=== PATIENT | female | born 1950 | race Caucasian/White ===

== ENCOUNTER 2019-11-15 14:50 | Emergency (ER) | payer MEDICARE, OTHER, SELFPAY ==
--- NOTE | 2019-11-15 14:53 | CTR_ITS ---
PROCEDURE INFORMATION: Exam: CT Head Without Contrast Exam date and time: 11/15/2019 2:55 PM Age: 69 years old Clinical indication: Speech disturbance and weakness, facial; Slurred speech; Additional info: Left side weakness TECHNIQUE: Imaging protocol: Computed tomography of the head without contrast. Radiation optimization: All CT scans at this facility use at least one of these dose optimization techniques: automated exposure control; mA and/or kV adjustment per patient size (includes targeted exams where dose is matched to clinical indication); or iterative reconstruction. COMPARISON: No relevant prior studies available. RADIATION DOSE METRICS: Total DLP (mGy-cm): 817.75 FINDINGS: Brain: Mild volume loss and white matter disease are identified. There is no acute infarct or edema. No hemorrhage. Ventricles: Normal. No ventriculomegaly. Bones/joints: Unremarkable. No acute fracture. Sinuses: Visualized sinuses are unremarkable. No fluid levels. Mastoid air cells: Visualized mastoid air cells are well aerated. Soft tissues: Unremarkable. CT/CT head wo con* [id number] IMPRESSION: There are no acute concerning abnormalities. Radiation Dose CTDIVOL = (mGy): DLP = 817.75 (mGy-cm)
[2019-11-15 15:02] VITALS: BMI 24.0
[2019-11-15 15:07] VITALS: BP 169/81; PULSE 77; RESP 18; TEMP 36.5; O2SAT 100
[2019-11-15 15:17] LABS: Glucose Point of Care 105 mg/dL (70-110)
--- NOTE | 2019-11-15 15:21 | ECG_ITS ---
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 Measurements Intervals [place] Rate: 73 P: -1 IA: 163 QRS: 44 QRSD: 94 T: 4 QT: 458 QTc: 507 Interpretive Statements SINUS RHYTHM PROLONGED QT INTERVAL No previous ECG available for comparison Electronically Signed On 11-16-2019 18:10:37 CDT by Luisa Emanuel M.D. [email or web address] medical [email or web address] [facility].[employer]/store/[id number] f
[2019-11-15 15:55] LABS: Basophils # 0.1 10^3/uL (0.0-0.1); Basophils % 0.9 %; Eosinophils # 0.1 10^3/uL (0.0-0.8); Eosinophils % 1.2 %; Hematocrit 34.8 % (37.0-47.0); Hemoglobin 10.9 g/dL (11.5-15.3); Lymphocytes # 1.7 10^3/uL (0.8-4.8); Lymphocytes % 25.7 %; Mean Corpuscular HGB Conc 31.3 g/dL (30.0-36.0); Mean Corpuscular Hemoglobin 29.9 pg (28.0-34.0); Mean Corpuscular Volume 95.6 fL (81-99); Mean Platelet Volume 10.1 fL (7.4-10.4); Monocytes # 0.4 10^3/uL (0.2-0.9); Monocytes % 5.9 %; Neutrophils # 4.29 10^3/uL (1.8-7.7); Neutrophils % 66.1 %; Nucleated Red Blood Cells % 0 %; Platelet Count 289 10^3/cmm (130-400); Red Blood Count 3.64 10^6/uL (4.1-5.3); Red Cell Distribution Width 13.1 % (12.1-15.1); White Blood Count 6.5 10^3/uL (4.0-10.0)
[2019-11-15 16:17] LABS: Troponin(5th) Baseline 6 ng/L (0-10)
[2019-11-15 16:21] LABS: D Dimer 0.28 ug/mIFEU (0-0.59)
[2019-11-15 16:42] LABS: Alanine Aminotransferase 20 U/L (0-33); Albumin Level 3.9 g/dL (3.5-5.2); Alkaline Phosphatase 56 IU/L (35-105); Anion Gap 15.6 (5-19); Aspartate Amino Transferase 27 U/L (0-32); Blood Urea Nitrogen 22 mg/dL (8-23); Calcium 8.4 mg/dL (8.5-10.5); Carbon Dioxide 22 mmol/L (22-29); Chloride 107 mmol/L (98-107); Creatine Phosphokinase 65 U/L (26-192); Globulin 2.6 g/dL (1.3-4.6); Glomerular Filtration Rate 71.5 mL/min (90-130); Glucose 120 mg/dL (65-115); Lipase 30 U/L (13-60); NT Pro B Type Natriuretic Pept 66 pg/mL (0-125); Osmolality Calculated 290 mOsm/kg (285-295); Potassium 3.6 mmol/L (3.5-5.1); Sodium 141 mmol/L (136-145); Total Bilirubin 0.5 mg/dL (0.15-1.2); Total Protein 6.5 g/dL (6.6-8.7)
--- NOTE | 2019-11-15 17:21 | ECG_ITS ---
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 Measurements Intervals [place] Rate: 65 P: 11 NE: 151 QRS: -3 QRSD: 89 T: 55 QT: 455 QTc: 475 Interpretive Statements SINUS RHYTHM Compared to ECG 11/15/2019 15:12:29 Prolonged QT interval no longer present Electronically Signed On 11-16-2019 18:14:28 CDT by Luisa Emanuel M.D. [email or web address] centerKallikmartin memorial hospitalGT [facility]rological/store/[id number]
--- NOTE | 2019-11-15 17:37 | CTR_ITS ---
PROCEDURE INFORMATION: Exam: CT Angiography Head With Contrast Exam date and time: 11/15/2019 6:12 PM Age: 69 years old Clinical indication: Patient HX: AMS and L sided weakness; Additional info: Neuro symptoms. TECHNIQUE: Imaging protocol: Computed tomography angiography of the head with intravenous contrast. 3D rendering: MIP and/or 3D reconstructed images were created by the technologist. Radiation optimization: All CT scans at this facility use at least one of these dose optimization techniques: automated exposure control; mA and/or kV adjustment per patient size (includes targeted exams where dose is matched to clinical indication); or iterative reconstruction. Contrast material: OMNI 350; Contrast volume: 95 ml; Contrast route: INTRAVENOUS (IV); COMPARISON: CT head wo con* [id number] 2019-11-15 14:50 RADIATION DOSE METRICS: Total DLP (mGy-cm): 1434.16 FINDINGS: ANTERIOR CIRCULATION: Right internal carotid artery: Unremarkable. Intracranial segment is patent with no significant stenosis. No aneurysm. Right middle cerebral artery: Unremarkable. No occlusion or significant stenosis. No aneurysm. Right anterior cerebral artery: Unremarkable. No occlusion or significant stenosis. No aneurysm. Left internal carotid artery: Unremarkable. Intracranial segment is patent with no significant stenosis. No aneurysm. Left middle cerebral artery: Unremarkable. No occlusion or significant stenosis. No aneurysm. Left anterior cerebral artery: Unremarkable. No occlusion or significant stenosis. No aneurysm. POSTERIOR CIRCULATION: Right vertebral artery: Unremarkable. No occlusion or significant stenosis. No aneurysm. Left vertebral artery: Unremarkable. No occlusion or significant stenosis. No aneurysm. Basilar artery: Unremarkable. No occlusion or significant stenosis. No aneurysm. Right posterior cerebral artery: Unremarkable. No occlusion or significant stenosis. No aneurysm. Left posterior cerebral artery: Unremarkable. No occlusion or significant stenosis. No aneurysm. Veins: The visualized deep and superficial dural venous sinuses and cortical veins are patent. IMPRESSION: No large vessel stenosis or occlusion. PROCEDURE INFORMATION: Exam: CT Angiography Neck With Contrast Exam date and time: 11/15/2019 6:12 PM Age: 69 years old Clinical indication: Patient HX: AMS and L sided weakness; Additional info: Neuro symptoms. TECHNIQUE: Imaging protocol: Computed tomography angiography of the neck with intravenous contrast. 3D rendering: MIP and/or 3D reconstructed images were created by the technologist. Radiation optimization: All CT scans at this facility use at least one of these dose optimization techniques: automated exposure control; mA and/or kV adjustment per patient size (includes targeted exams where dose is matched to clinical indication); or iterative reconstruction. Contrast material: OMNI 350; Contrast volume: 95 ml; Contrast route: INTRAVENOUS (IV); COMPARISON: CT head wo con* [id number] 2019-11-15 14:50 RADIATION DOSE METRICS: Total DLP (mGy-cm): 1434.16 FINDINGS: Right common carotid artery: No stenosis. No dissection or occlusion. Right internal carotid artery: Mild atherosclerotic plaque in the carotid bulb and proximal right internal carotid artery with less than 50% stenosis by NASCET criteria. Right external carotid artery: Mild atherosclerotic plaque at the right external carotid artery origin. Right vertebral artery: No stenosis. No dissection or occlusion. Left common carotid artery: Mild atherosclerotic plaque in the predominately distal left common carotid artery and the bifurcation. Left internal carotid artery: Mild atherosclerotic plaque in the proximal left internal carotid artery and carotid bulb with less than 50% stenosis by NASCET criteria. Left external carotid artery: No occlusion or stenosis of the origin. Left vertebral artery: No stenosis. No dissection or occlusion. Bones/joints: No acute fracture. Soft tissues: Normal. No significant soft tissue swelling. CT/CT angio headneck* [id number] IMPRESSION: Minimal atherosclerotic plaque in the proximal internal carotid arteries and bifurcations without measurable stenosis. REFERENCES: NASCET CRITERIA. The degree of internal carotid artery stenosis is based on NASCET criteria. Normal is no stenosis. Mild is less than 50% stenosis. Moderate is 50-69% stenosis. Severe is 70% to 99% stenosis. Total occlusion is no detectable patent lumen. Radiation Dose CTDIVOL = (mGy): DLP = 1434.16~1434.16 (mGy-cm)
[2019-11-15 18:01] LABS: Add Urine Microscopic? NO
[2019-11-15 18:03] LABS: Bilirubin Urine Neg (NEGATIVE); Blood Urine Neg (Negative); Glucose Urine UA Norm (Normal); Ketones Urine Negative (Negative); Leukocyte Esterase Urine Negative (Negative); Nitrate Urine Negative (Negative); Protein Urine Neg (Negative); Specific Gravity, Urine 1.015 (1.005-1.030); Sulfosalicylic Acid Urine Negative (Negative); Urine Appearance Clear (CLEAR); Urine Color Yellow (Yellow); Urobilinogen Urine Norm (Negative); pH Urine 8 (5-7)
[2019-11-15 18:21] LABS: Troponin 5 2HR Delta 0 ABS# (0-10)
[2019-11-15 19:27] VITALS: PULSE 78; RESP 16; O2SAT 100
[2019-11-15] MEDS: iohexol 350 mg/mL 100 mL Btl IV (20:19)
[2019-11-15 20:21] VITALS: BP 151/83; PULSE 82; RESP 16; O2SAT 97
--- NOTE | 2019-11-15 20:55 | PC.NURSE ---
Patient ambulated to the bathroom with assist x 1. . Returned to room after using the bathroom and placed on monitor. Slightly unsteady of her feet but tolerated activity well.
[2019-11-15 21:00] VITALS: BP 175/81; PULSE 74; RESP 16; O2SAT 98
--- NOTE | 2019-11-15 21:01 | W.ED.NEUROSD ---
HPI - Neuro Symptoms/Deficit General: Chief Complaint: Neuro Symptoms/Deficit Stated Complaint: WEAKNESS Time Seen by Provider: 11/15/19 15:04 Source: patient and EMS Mode of arrival: EMS Limitations: no limitations History of Present Illness: HPI Narrative: Patient is a 69-year-old female with a history of hypertension who presents to the emergency department with generalized weakness, nausea and vomiting that started while she was on a drive from [place] going to [place]. She describes a sensation of the room spinning and is worse when she turns her head. She has no focal weakness but has generalized weakness. She denies any chest pain, shortness of breath, abdominal pain. When the ambulance arrived they said she was diaphoretic and they thought she may have had a facial droop. She was also pale at the time. Onset (ago): hour(s) (1.5) Associated symptoms: Reports nausea, vertigo and vomiting; Deny headache(s) Review of Systems General: Reports: 10 or more systems reviewed and unremarkable except in HPI and below Const: Denies: fever(s), chills or body aches Eyes: Denies: change in vision or blurry vision ENMT: Denies: throat pain, enlarged tonsils, odynophagia, hoarseness, mouth pain or swelling of lips/tongue Card: Denies: palpitations, irregular heart rhythm, edema or swelling of feet/ankles Resp: Denies: dyspnea, productive cough or non-productive cough GI: Reports: nausea and vomiting; Denies: abdominal pain, dysphagia or diarrhea : Denies: flank pain, difficulty voiding, dysuria, urinary frequency, urinary urgency or urinary hesitancy Musc: Denies: neck pain, back pain or extremity swelling Skin/Breast: Denies: rash, pruritus or erythema Neuro: Reports: vertigo; Denies: headache(s), numbness in extremities, weakness in extremities, Slurred speech present, difficulty communicating thoughts, seizure-like activity or involuntary movements Endo: Denies: polyuria, polydipsia or tired all the time NIH stroke score NIHSS: Level Of Consciousness - 1a: 0 Level Of Consciousness Questions - 1b: Both Correct Level Of Consciousness Commands - 1c: Both Correct Best Gaze - 2: Normal Facial Palsy - 4: Normal Motor Arm Right - 5: No Drift Motor Arm Left - 5: No Drift Motor Leg Right - 6: No Drift Motor Leg Left - 6: No Drift Limb Ataxia - 7: Absent Sensory - 8: Normal Best Language - 9: No Aphasia Dysarthia - 10: Normal Extinction And Inattention - 11: 0 Physical Exam Const: COMMON NORMALS: average body habitus, patient oriented x3, no limitations, healthy appearing, alert and well nourished GENERAL APPEARANCE: in distress OTHER: diaphoretic, pale HENMT: COMMON NORMALS: normocephalic, atraumatic and moist oral mucous membranes HEAD & SCALP: normocephalic and atraumatic Eye: COMMON NORMALS: Equal, round and reactive pupils present, EOMs intact bilaterally, conjunctivae normal and no scleral icterus CONJUNCTIVA: Yes conjunctivae normal PUPIL: Yes Equal, round and reactive pupils present Neck/C-Spine: COMMON NORMALS: full ROM, supple, no meningeal signs, no JVD and No carotid bruits Chest: COMMONS NORMALS: normal inspection of the chest and normal palpation of entire chest wall Resp: COMMON NORMALS: normal respiratory effort, No retractions, No use of accessory muscles, clear to auscultation bilaterally and percussion normal AUSCULTATION: clear to auscultation bilaterally PERCUSSION: percussion normal Cardio: COMMON NORMALS: no JVD, regular rate, regular rhythm, S1 normal heart sound present, S2 normal heart sound present, No gallops present (Cardio), No clicks present (Cardio), No murmurs present (Cardio), No rub (Cardio) and Peripheral pulses 2+ throughout RATE: regular rate RHYTHM: regular rhythm HEART SOUNDS: S1 normal heart sound present and S2 normal heart sound present PERIPHERAL PULSES: Peripheral pulses 2+ throughout GI: COMMON NORMALS: Normal to inspection, nondistended, normoactive bowel sounds present, Soft to palpation, non-tender, No hepatosplenomegaly present, no masses and no bruits PALPATION: Yes Soft to palpation and Yes No hepatosplenomegaly present : COMMON NORMALS: Yes no CVA tenderness BLADDER/KIDNEY EXAM: Yes no CVA tenderness Back/Pelvis: COMMON NORMALS: no CVA tenderness Extremity: COMMON NORMALS: normal to inspection, full ROM, capillary refill normal, no calf tenderness and no pedal edema Neuro: COMMON NORMALS: patient oriented x3 SENSORIUM/ORIENTATION: Yes alert MENINGEAL SIGNS: Yes no meningeal signs Skin: COMMON NORMALS: no rashes or lesions noted, no wounds, turgor normal, no jaundice, no petechiae and no mottling GENERAL SKIN EXAM: no rashes or lesions noted and turgor normal Course Reevaluation(s): Reevaluation #1: Discussed her lab and imaging findings with her. All negative for acute findings. Head CT and head/neck CTA negative for acute findings. Negative d-dimer, negative high-sensitivity troponin x2. She did have vertigo on her symptoms are likely secondary to BPPV. We will discharge her home with a prescription for meclizine. She voiced understanding and is in agreement with the plan. Time: 21:01 Vital Signs: Vital signs: Vital Signs Temperature 97.7 F 11/15/19 15:07 Pulse Rate 74 11/15/19 21:00 Respiratory Rate 16 11/15/19 21:00 Blood Pressure 175/81 11/15/19 21:00 Pulse Oximetry 98 11/15/19 21:00 MDM - Neuro Symptoms/Deficit MDM Narrative: Medical decision making narrative: 69-year-old female patient who came in with generalized weakness, vertigo, but no chest pain and no focal weakness. Evaluation in the ED was unremarkable including negative d-dimer, negative high-sensitivity troponin x2, negative head CT and head and neck CTA. Symptoms are likely secondary to BPPV and she is given a dose of Ativan and will be discharged home with a prescription for meclizine. She will follow-up with her primary care provider and she is also given Audra maneuver exercises to perform. Medical Records: Attestation: I reviewed the patient's medical records. Lab Data: Attestation: I reviewed the patient's lab results. Labs: Lab Results 11/15/19 11/15/19 11/15/19 Range/Units 15:05 15:40 15:40 WBC 6.5 (4.0-10.0) 10^3/ uL RBC 3.64 L (4.1-5.3) 10^6/u L Hgb 10.9 L (11.5-15.3) g/dL Hct 34.8 L (37.0-47.0) % MCV 95.6 (81-99) fL MCH 29.9 (28.0-34.0) pg MCHC 31.3 (30.0-36.0) g/dL RDW 13.1 (12.1-15.1) % Plt Count 289 (130-400) 10^3/c mm MPV 10.1 (7.4-10.4) fL Neut % (Auto) 66.1 % Lymph % (Auto) 25.7 % [place] % (Auto) 5.9 % Eos % (Auto) 1.2 % Baso % (Auto) 0.9 % Neut # (Auto) 4.29 (1.8-7.7) 10^3/u L Lymph # (Auto) 1.7 (0.8-4.8) 10^3/u L [place] # (Auto) 0.4 (0.2-0.9) 10^3/u L Eos # (Auto) 0.1 (0.0-0.8) 10^3/u L Baso # (Auto) 0.1 (0.0-0.1) 10^3/u L Nucleated RBC % (a uto) 0 % Nucleated RBCs # 0.0 /100WBC D-Dimer 0.28 (0-0.59) ug/mIFE U Sodium (136-145) mmol/L Potassium (3.5-5.1) mmol/L Chloride (98-107) mmol/L Carbon Dioxide (22-29) mmol/L Anion Gap (5-19) BUN (8-23) mg/dL Creatinine (0.5-0.9) mg/dL GFR Calculation (90-130) mL/min Glucose (65-115) mg/dL POC Glucose 105 (70-110) mg/dL Calculated Osmolal ity (285-295) mOsm/k g Calcium (8.5-10.5) mg/dL Total Bilirubin (0.15-1.2) mg/dL AST (0-32) U/L ALT (0-33) U/L Alkaline Phosphata se (35-105) IU/L Creatine Kinase (26-192) U/L Troponin T Baselin e (0-10) ng/L Troponin T 120 [address] [place] (0-10) ng/L Delta Troponin T (0-10) ABS# NT-Pro-B Natriuret Pep (0-125) pg/mL Total Protein (6.6-8.7) g/dL Albumin (3.5-5.2) g/dL Globulin (1.3-4.6) g/dL Lipase (13-60) U/L Urine Color (Yellow) Urine Appearance (CLEAR) Urine pH (5-7) Ur Specific Gravit y (1.005-1.030) Urine Protein (Negative) Urine Glucose (UA) (Normal) Urine Ketones (Negative) Urine Blood (Negative) Urine Nitrate (Negative) Urine Bilirubin (NEGATIVE) Prot Sulfosalicyli c Acd (Negative) Urine Urobilinogen (Negative) mg/dL Ur Leukocyte Capri ase (Negative) 11/15/19 11/15/19 11/15/19 Range/Units 15:40 15:40 17:35 WBC (4.0-10.0) 10^3/ uL RBC (4.1-5.3) 10^6/u L Hgb (11.5-15.3) g/dL Hct (37.0-47.0) % MCV (81-99) fL MCH (28.0-34.0) pg MCHC (30.0-36.0) g/dL RDW (12.1-15.1) % Plt Count (130-400) 10^3/c mm MPV (7.4-10.4) fL Neut % (Auto) % Lymph % (Auto) % [place] % (Auto) % Eos % (Auto) % Baso % (Auto) % Neut # (Auto) (1.8-7.7) 10^3/u L Lymph # (Auto) (0.8-4.8) 10^3/u L [place] # (Auto) (0.2-0.9) 10^3/u L Eos # (Auto) (0.0-0.8) 10^3/u L Baso # (Auto) (0.0-0.1) 10^3/u L Nucleated RBC % (a uto) % Nucleated RBCs # /100WBC D-Dimer (0-0.59) ug/mIFE U Sodium 141 (136-145) mmol/L Potassium 3.6 (3.5-5.1) mmol/L Chloride 107 (98-107) mmol/L Carbon Dioxide 22 (22-29) mmol/L Anion Gap 15.6 (5-19) BUN 22 (8-23) mg/dL Creatinine 0.8 (0.5-0.9) mg/dL GFR Calculation 71.5 L (90-130) mL/min Glucose 120 H (65-115) mg/dL POC Glucose (70-110) mg/dL Calculated Osmolal ity 290 (285-295) mOsm/k g Calcium 8.4 L (8.5-10.5) mg/dL Total Bilirubin 0.5 (0.15-1.2) mg/dL AST 27 (0-32) U/L ALT 20 (0-33) U/L Alkaline Phosphata se 56 (35-105) IU/L Creatine Kinase 65 (26-192) U/L Troponin T Baselin e 6 (0-10) ng/L Troponin T 120 Min [place] (0-10) ng/L Delta Troponin T (0-10) ABS# NT-Pro-B Natriuret Pep 66 (0-125) pg/mL Total Protein 6.5 L (6.6-8.7) g/dL Albumin 3.9 (3.5-5.2) g/dL Globulin 2.6 (1.3-4.6) g/dL Lipase 30 (13-60) U/L Urine Color Yellow (Yellow) Urine Appearance Clear (CLEAR) Urine pH 8 H (5-7) Ur Specific Gravit y 1.015 (1.005-1.030) Urine Protein Neg (Negative) Urine Glucose (UA) Norm (Normal) Urine Ketones Negative (Negative) Urine Blood Neg (Negative) Urine Nitrate Negative (Negative) Urine Bilirubin Neg (NEGATIVE) Prot Sulfosalicyli c Acd Negative (Negative) Urine Urobilinogen Norm (Negative) mg/dL Ur Leukocyte Capri ase Negative (Negative) 11/15/19 Range/Units 17:55 WBC (4.0-10.0) 10^3/ uL RBC (4.1-5.3) 10^6/u L Hgb (11.5-15.3) g/dL Hct (37.0-47.0) % MCV (81-99) fL MCH (28.0-34.0) pg MCHC (30.0-36.0) g/dL RDW (12.1-15.1) % Plt Count (130-400) 10^3/c mm MPV (7.4-10.4) fL Neut % (Auto) % Lymph % (Auto) % [place] % (Auto) % Eos % (Auto) % Baso % (Auto) % Neut # (Auto) (1.8-7.7) 10^3/u L Lymph # (Auto) (0.8-4.8) 10^3/u L [place] # (Auto) (0.2-0.9) 10^3/u L Eos # (Auto) (0.0-0.8) 10^3/u L Baso # (Auto) (0.0-0.1) 10^3/u L Nucleated RBC % (a uto) % Nucleated RBCs # /100WBC D-Dimer (0-0.59) ug/mIFE U Sodium (136-145) mmol/L Potassium (3.5-5.1) mmol/L Chloride (98-107) mmol/L Carbon Dioxide (22-29) mmol/L Anion Gap (5-19) BUN (8-23) mg/dL Creatinine (0.5-0.9) mg/dL GFR Calculation (90-130) mL/min Glucose (65-115) mg/dL POC Glucose (70-110) mg/dL Calculated Osmolal ity (285-295) mOsm/k g Calcium (8.5-10.5) mg/dL Total Bilirubin (0.15-1.2) mg/dL AST (0-32) U/L ALT (0-33) U/L Alkaline Phosphata se (35-105) IU/L Creatine Kinase (26-192) U/L Troponin T Baselin e (0-10) ng/L Troponin T 120 [address] [place] 6.00 (0-10) ng/L Delta Troponin T 0 (0-10) ABS# NT-Pro-B Natriuret Pep (0-125) pg/mL Total Protein (6.6-8.7) g/dL Albumin (3.5-5.2) g/dL Globulin (1.3-4.6) g/dL Lipase (13-60) U/L Urine Color (Yellow) Urine Appearance (CLEAR) Urine pH (5-7) Ur Specific Gravit y (1.005-1.030) Urine Protein (Negative) Urine Glucose (UA) (Normal) Urine Ketones (Negative) Urine Blood (Negative) Urine Nitrate (Negative) Urine Bilirubin (NEGATIVE) Prot Sulfosalicyli c Acd (Negative) Urine Urobilinogen (Negative) mg/dL Ur Leukocyte Capri ase (Negative) Imaging Data^: CT Head: Radiologist's impression: [address] [place] [address] CT Scan Report Signed Patient: Fernanda Irwin #: [id number] : 1950cct#:[id number] Age/Sex: 69 / FADM Date: 11/15/19 Loc: ERRoom/Bed: Attending Dr: Ordering Provider/Ordering MD: Bart Mosley DO Date of Service: 11/15/19 Procedure(s): CT head wo con* [id number] Accession Number(s): [id number] Report Number: [id number] PROCEDURE INFORMATION: Exam: CT Head Without Contrast Exam date and time: 11/15/2019 2:55 PM Age: 69 years old Clinical indication: Speech disturbance and weakness, facial; Slurred speech; Additional info: Left side weakness TECHNIQUE: Imaging protocol: Computed tomography of the head without contrast. Radiation optimization: All CT scans at this facility use at least one of these dose optimization techniques: automated exposure control; mA and/or kV adjustment per patient size (includes targeted exams where dose is matched to clinical indication); or iterative reconstruction. COMPARISON: No relevant prior studies available. RADIATION DOSE METRICS: Total DLP (mGy-cm): 817.75 FINDINGS: Brain: Mild volume loss and white matter disease are identified. There is no acute infarct or edema. No hemorrhage. Ventricles: Normal. No ventriculomegaly. Bones/joints: Unremarkable. No acute fracture. Sinuses: Visualized sinuses are unremarkable. No fluid levels. Mastoid air cells: Visualized mastoid air cells are well aerated. Soft tissues: Unremarkable. CT/CT head wo con* [id number] IMPRESSION: There are no acute concerning abnormalities. Radiation Dose CTDIVOL = (mGy): DLP = 817.75 (mGy-cm) Dictated By:Joshua Manzo MD Signed By:Joshua Manzo MDSigned Date/Time:11/15/19 1522 DD/ [address]: Radiologist's impression: [facility] [address] [place] [address] CT Scan Report Signed Patient: Carmelita Irwin #: [id number] : 3Acct#:[id number] Age/Sex: 69 / FADM Date: 11/15/19 Loc: ERRoom/Bed: Attending Dr: Ordering Provider/Ordering MD: Kelsey Dominguez MD, [facility] Date of Service: 11/15/19 Procedure(s): CT angio headneck* [id number] Accession Number(s): [id number] Report Number: [id number] PROCEDURE INFORMATION: Exam: CT Angiography Head With Contrast Exam date and time: 11/15/2019 6:12 PM Age: 69 years old Clinical indication: Patient HX: AMS and L sided weakness; Additional info: Neuro symptoms. TECHNIQUE: Imaging protocol: Computed tomography angiography of the head with intravenous contrast. 3D rendering: MIP and/or 3D reconstructed images were created by the technologist. Radiation optimization: All CT scans at this facility use at least one of these dose optimization techniques: automated exposure control; mA and/or kV adjustment per patient size (includes targeted exams where dose is matched to clinical indication); or iterative reconstruction. Contrast material: OMNI 350; Contrast volume: 95 ml; Contrast route: INTRAVENOUS (IV); COMPARISON: CT head wo con* [id number] 2019-11-15 14:50 RADIATION DOSE METRICS: Total DLP (mGy-cm): 1434.16 FINDINGS: ANTERIOR CIRCULATION: Right internal carotid artery: Unremarkable. Intracranial segment is patent with no significant stenosis. No aneurysm. Right middle cerebral artery: Unremarkable. No occlusion or significant stenosis. No aneurysm. Right anterior cerebral artery: Unremarkable. No occlusion or significant stenosis. No aneurysm. Left internal carotid artery: Unremarkable. Intracranial segment is patent with no significant stenosis. No aneurysm. Left middle cerebral artery: Unremarkable. No occlusion or significant stenosis. No aneurysm. Left anterior cerebral artery: Unremarkable. No occlusion or significant stenosis. No aneurysm. POSTERIOR CIRCULATION: Right vertebral artery: Unremarkable. No occlusion or significant stenosis. No aneurysm. Left vertebral artery: Unremarkable. No occlusion or significant stenosis. No aneurysm. Basilar artery: Unremarkable. No occlusion or significant stenosis. No aneurysm. Right posterior cerebral artery: Unremarkable. No occlusion or significant stenosis. No aneurysm. Left posterior cerebral artery: Unremarkable. No occlusion or significant stenosis. No aneurysm. Veins: The visualized deep and superficial dural venous sinuses and cortical veins are patent. IMPRESSION: No large vessel stenosis or occlusion. PROCEDURE INFORMATION: Exam: CT Angiography Neck With Contrast Exam date and time: 11/15/2019 6:12 PM Age: 69 years old Clinical indication: Patient HX: AMS and L sided weakness; Additional info: Neuro symptoms. TECHNIQUE: Imaging protocol: Computed tomography angiography of the neck with intravenous contrast. 3D rendering: MIP and/or 3D reconstructed images were created by the technologist. Radiation optimization: All CT scans at this facility use at least one of these dose optimization techniques: automated exposure control; mA and/or kV adjustment per patient size (includes targeted exams where dose is matched to clinical indication); or iterative reconstruction. Contrast material: OMNI 350; Contrast volume: 95 ml; Contrast route: INTRAVENOUS (IV); COMPARISON: CT head wo con* [id number] 2019-11-15 14:50 RADIATION DOSE METRICS: Total DLP (mGy-cm): 1434.16 FINDINGS: Right common carotid artery: No stenosis. No dissection or occlusion. Right internal carotid artery: Mild atherosclerotic plaque in the carotid bulb and proximal right internal carotid artery with less than 50% stenosis by NASCET criteria. Right external carotid artery: Mild atherosclerotic plaque at the right external carotid artery origin. Right vertebral artery: No stenosis. No dissection or occlusion. Left common carotid artery: Mild atherosclerotic plaque in the predominately distal left common carotid artery and the bifurcation. Left internal carotid artery: Mild atherosclerotic plaque in the proximal left internal carotid artery and carotid bulb with less than 50% stenosis by NASCET criteria. Left external carotid artery: No occlusion or stenosis of the origin. Left vertebral artery: No stenosis. No dissection or occlusion. Bones/joints: No acute fracture. Soft tissues: Normal. No significant soft tissue swelling. CT/CT angio headneck* [id number] IMPRESSION: Minimal atherosclerotic plaque in the proximal internal carotid arteries and bifurcations without measurable stenosis. REFERENCES: NASCET CRITERIA. The degree of internal carotid artery stenosis is based on NASCET criteria. Normal is no stenosis. Mild is less than 50% stenosis. Moderate is 50-69% stenosis. Severe is 70% to 99% stenosis. Total occlusion is no detectable patent lumen. Radiation Dose CTDIVOL = (mGy): DLP = 1434.16~1434.16 (mGy-cm) Dictated By:Javi Vidales MD Signed By:Javi Vidales MDSigned Date/Time:11/15/192041 DD/ 40 EKG Data^: EKG 1: Attestation: I personally reviewed and interpreted this EKG as follows: EKG interpretation date: 11/15/19 EKG interpretation time: 15:12 Prior EKG tracings: not available for review Interpretation: Normal sinus rhythm. Heart rate 73 bpm. Normal axis. No ST changes. No STEMI EKG 2: Attestation: I personally reviewed and interpreted this EKG as follows: EKG interpretation date: 11/15/19 EKG interpretation time: 17:30 Prior EKG tracings: available for review Interpretation: Normal sinus rhythm. Heart rate 65 bpm. Normal axis. No ST changes. No STEMI. Discharge Plan Discharge Patient Disposition: Home Clinical Impression: Benign paroxysmal positional vertigo Qualifiers: Laterality: unspecified laterality Qualified Code(s): H81.10 - Benign paroxysmal vertigo, unspecified ear Condition: Stable Prescriptions: New meclizine 25 mg tablet 25 mg PO TID PRN (Reason: vertigo) Qty: 30 RF: 0 No Action lisinopril 40 mg Tablet 40 mg PO DAILY RF: 0 Discharge Orders: Discharge Order (Routine); Ordered 11/15/19 Ordered By: Kelsey Dominguez Discharge Diet: Usual diet Discharge Activity: Increase activity as tolerated Patient Instructions: Benign Paroxysmal Positional Vertigo (ED) Activity Restrictions/Additional Instructions: Return for any new or worsening symptoms. Follow-up with your primary care provider within 1 week. Perform the exercises given to you to see if that helps. Try the prescription given to you to see if it helps with your symptoms. Coding Level of Care Code ED Street Roller Engineer for Chg Fwd Exam Comprehensive
[2019-11-15] MEDS: LORazepam 2 mg/mL INJ 1 mL 1 MG IVP (21:12)
--- NOTE | 2019-11-15 21:21 | ECG_ITS ---
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 Measurements Intervals [place] Rate: 70 P: 63 [place]: 133 QRS: 5 QRSD: 90 T: 20 QT: 421 QTc: 456 Interpretive Statements SINUS RHYTHM Compared to ECG 11/15/2019 17:30:48 No significant changes Electronically Signed On 11-16-2019 18:14:39 CDT by Luisa Emanuel M.D. [id number]
[2019-11-15 22:12] VITALS: BP 165/81; PULSE 78; RESP 18; O2SAT 98
== END 2019-11-15 22:19 | disposition home or self-care (01) ==
PROVIDERS: Emergency Provider Family Medicine
DX: H81.10 Benign paroxysmal vertigo, unspecified ear (principal)
CPT/HCPCS: 12345; 36415; 36416; 70450; 70496; 70498; 80053; 81003; 82550; 82962; 83690; 83880; 84484; 85025; 85378; 93005; 96374; 99283; 99284; J2060; Q9967